=== PATIENT | male | born 1975 | race Caucasian/White ===

== ENCOUNTER 2019-04-11 18:23 | Observation (INO) | payer OTHER ==
[~2019-04-11] VITALS: Ht 188 cm; Wt 90.7 kg
[~2019-04-11 18:23] MED LIST: AMBIEN5 MG PO; CLONAZEPAM1 MG PO; ZOLOFT50 MG PO
--- OUTSIDE RECORDS SUMMARY | 2019-04-11 18:26 | XMS ---
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 EHemanth VISIT COUNT (12 MO.) 1 SHARON Gil TOTAL 1 NOTE: Visits indicate total known visits. ED/UCC VISIT TRACKING (12 MO.) 04/11/2019 18:24 SHARON Sood OR TYPE: Emergency COMPLAINT: - POSSIBLE STROKE INPATIENT VISIT TRACKING (12 MO.) No inpatient visits to display in this time frame [email or web address]
[2019-04-11] MEDS ORDERED: ALPRAZOLAM2 MG PO (18:45)
[2019-04-11] MEDS ORDERED: SEROQUEL100 MG PO (18:45)
[2019-04-11] MEDS ORDERED: VITAMIN D2000 UNIT PO (18:46)
[2019-04-11] MEDS ORDERED: MAGNESIUM500 MG PO (18:47)
[2019-04-11] MEDS ORDERED: K-TAB ER20 MEQ PO (18:47)
[2019-04-11] MEDS ORDERED: ALPHA LIPOIC A200 M1 PO (18:48)
[2019-04-11] MEDS ORDERED: MELATONIN10 M2 PO (23:42)
[2019-04-11] MEDS ORDERED: SEROQUEL50 MG PO (23:43)
--- NOTE | 2019-04-11 23:45 | NUR ---
PT ARRIVED TO THE FLOOR, PT AOX4, APPROPRIATE, PT'S SPEECH CLEAR, ARTICULATE, PT'S STRENGTH SYMMETRICAL, NO DEFICITS, PERRLA, PT'S VSS, PT IS ANXIOUS BUT STATES HE OVERALL FEELS "NORMAL", SLIGHT SPASM NOTED IN PT'S RIGHT THIGH, PT DESCRIBES A VIGOROUS WORKOUT HE DID EARLIER THIS DAY, PT'S CMS INTACT, IV SL, FLUSHES WELL, PT ON TELE 7, IN NSR, HR 60'S, PT ORIENTED TO ROOM, POC UPDATED, EDUCATION PROVIDED, CALL LIGHT WITHIN REACH.
--- NOTE | 2019-04-12 00:30 | NUR ---
PT'S HOME SLEEPING MEDS ORDERED PER PHONE ORDER FROM DR. CRUZ, PER PT'S REQUEST, SEE EMAR. HS MEDS GIVEN, PT RESTING IN BED, ASKING QUESTIONS REGARDING DISEASE PROCESS, EDUCATION PROVIDED REGARDING DISEASE PROCESS, POC, LABS, MEDICATIONS, QUESTIONS ANSWERED, PT DESCRIBES FEELING ANXIOUS, REASSURANCE PROVIDED, PT REMAINS ON TELE 7, HR 61, NO FURTHER NEEDS AT THIS TIME, CALL LIGHT WITHIN REACH.
--- NOTE | 2019-04-12 03:08 | NUR ---
PT RESTING IN BED, EYES CLOSED, BREATHS EVEN, UNLABORED, NO NEEDS AT THIS TIME ON TELE, HR 62 NSR, CALL LIGHT WITHIN REACH.
--- NOTE | 2019-04-12 06:27 | NUR ---
PT RESTING IN BED, PT'S SPEECH REMAINS ARTICULATE, AOX4, APPROPRIATE, NO SENSORY OR MUSCULOSKELETAL DEFECITS, STRENGTH SYMMETRICAL, PERRLA, PT'S VSS, BREAKFAST MENU PROVIDED PER PT'S REQUEST, PT DENIES ANY PAIN, ONLY SLIGHT HEADACHE WHICH HE CLAIMS IS USUAL FOR HIM, PT REMAINS ON TELE, HR 72, NO NEEDS AT THIS TIME, CALL LIGHT WITHIN REACH.
--- NOTE | 2019-04-12 07:20 | NUR ---
Pt resting in semifowlers position in bed alert and oriented, face symmetrical, speech clear and flows easily. Pt reports not having eaten since yesterday and that he is very hungry for breakfast. Pt denies wanting snack at this time. Pt denie sother needs or concerns. Call light and h2o in reach.
--- NOTE | 2019-04-12 08:00 | NUR ---
PATIENT SITTING UP IN CHAIR TAKING BREAKFAST. PATIENT SAID MAYBE LATER HE IS GOING TO TAKE A SHOWER. CALL LIGHT WITHIN REACH. NO OTHER NEEDS AT THIS TIME
--- NOTE | 2019-04-12 08:08 | NUR ---
PT RESTING IN SEMI FOWLERS POSITION IN BED, ALERT AND ORIENTED. PT ASSESSMENT COMPLETED. PT'S SPEECH REMAINS CLEAR, WITH GOOD FLOW. SMILE SYMETRICAL, PERRLA, PT DENIES ANY NUMBNESS, TINGLING BURNING, WEEKNESS OR ANY OTHER SYMPTOMS AT THIS TIME. PT VERY MOTIVATED TO FIND CAUSITIVE FACTORS INVOLVED WITH TIA AND TREATMENT/LIFESTYLE CHANGES. PT EDUCATED AND DEMONSTRATES KNOWLEDGE OF TREATMENT PLAN. NO FURTHER NEEDS/CONCERNS VOICED. CALL LIGHT AND H2O IN REACH. AM MED ADMINISTERED -SEE EMAR.
--- NOTE | 2019-04-12 09:29 | NUR ---
PATIENT USING THE BATHROOM. PATIENT BACKS TO BED. VITAL SIGNS AND I&O DONE. ICE WATER GIVEN, CALL LIGHT WITHIN REACH. NO OTHER NEEDS AT THIS TIME
[2019-04-12] MEDS ORDERED: FISH OIL 1,0001 EAC3 PO (09:31)
--- NOTE | 2019-04-12 10:08 | NUR ---
Jennifer MANTILLA DISCUSSING DISCHARGE/TREATMENT PLAN AT LENGTH WITH PT. LIPITOR ADMINISTERED -SEE EMAR. CALL LIGHT AND H2O IN REACH.
[2019-04-12] MEDS ORDERED: LIPITOR40 MG PO (10:35)
[2019-04-12] MEDS ORDERED: ASPIRIN EC325 MG PO (10:35)
--- NOTE | 2019-04-12 14:26 | EKG ---
[facility] [address] [facility] [place], [place] [address] Signed Normal sinus rhythm Normal ECG No previous ECGs available Confirmed by ROXIE CRUZ DO ([id number]) on 04/12/2019 2:26:34 PM Electronically Signed By: ROXIE CRUZ DO 04/12/19 1426 PATIENT NAME: DEIDRE PEMBERTON BETH Electrocardiogram DATE OF : 71 PHYSICIAN: ROXIE CRUZ DO REPORT #: [id number] REPORT IS CONFIDENTIAL AND NOT TO BE RELEASED WITHOUT AUTHORIZATION
== END 2019-04-12 11:35 | disposition home or self-care (01) ==
LOC: ED 18:23 → MS 18:25
PROVIDERS: ADMIT Student in an Organized Health Care Education/Training Program
DX: G45.9 Transient cerebral ischemic attack, unspecified (principal); G47.00 Insomnia, unspecified; Z87.891 Personal history of nicotine dependence; Z79.899 Other long term (current) drug therapy
CPT/HCPCS: 70450; 70496; 70498; 80053; 80061; 81001; 83036; 83735; 85025; 85610; 85730; 93005; 93010; 93306; 96360; 99285-25; G0378; J7030; Q9967

== ENCOUNTER 2023-07-27 06:58 | Day surgery (SDC) | payer OTHER ==
[2023-07-25 16:32] VITALS: BP 127/98
[~2023-07-27] VITALS: Ht 188 cm; Wt 104.1 kg
[~2023-07-27 06:58] MED LIST changes: +ALPHA LIPOIC A200 M1 PO; +ALPRAZOLAM2 MG PO; +ASPIRIN EC325 MG PO; +FISH OIL 1,0001 EAC3 PO; +K-TAB ER20 MEQ PO; +LIPITOR40 MG PO; +MAGNESIUM500 MG PO; +MELATONIN10 M2 PO; +SEROQUEL100 MG PO; +SEROQUEL50 MG PO; +VITAMIN D2000 UNIT PO; +ZALEPLON5 MG PO
[2023-07-27 07:22] VITALS: BP 115/83
--- NOTE | 2023-07-27 08:03 | NUR ---
DS ROUNDS. 15 MINUTES. PT EXPRESSED NERVOUSNESS. NORMALIZED PATIENT EXPERIENCE. PROVIDED ANXIETY CONTAINMENT. PROVIDED PRAYER. PT EXPRESSED GRATITUDE.
--- NOTE | 2023-07-27 09:11 | NUR ---
07/27/23 0911 Marlyn Reyes 0850- PT ARRIVES TO PACU, LEFT LATERAL POSITION. LR INFUSING TO RH IV, O2 AT 6L PER MASK. ALL MONITORS IN PLACE. ABD SOFT, NON DISTENDED. PT NON REACTIVE TO STIMULUS AT THIS TIME. 0853- PT SLOWLY WAKING, REACTIVE. MOVING EXTREMITIES AROUND, RE ORIENTED TO TIME AND PLACE. ASSURED PT SAFE AND WAKING UP. 0855- PT REQUESTS O2 MASK TO BE REMOVED, O2 SATS 100%. MOVED TO ROOM AIR AT THIS TIME. 0910- PT REMAINS AWAKE, CONVERSING WITH STAFF. NO SIGNS OF DISTRESS. PT ANSWERS ALL QUESTIONS APPROPRIATELY, EVEN ABLE TO TEXT SON TO ASSURE AWAKE.
[2023-07-27 09:40] VITALS: BP 116/90
--- NOTE | 2023-07-27 10:41 | OR ---
[facility] [place] [facility] [address] [place], [place] [address] Signed DATE OF OPERATION: 07/27/2023 SURGEON: Lukas Rose MD PREOPERATIVE DIAGNOSIS: Screening. POSTOPERATIVE DIAGNOSIS: 4 mm polyp, distal hepatic flexure. PROCEDURE: Colonoscopy with hot biopsy. ESTIMATED BLOOD LOSS: None. INDICATIONS: Deidre is a 48-year-old gentleman asked to see me for his initial screening colonoscopy. He has no lower GI complaints. There is no family history of colon cancer or polyps. 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 In the office, I gave Deidre a pamphlet on colonoscopy. We had reviewed the nature of the test. There is risk including, but not limited to gas bloating, crampy abdominal pain, bleeding, perforation requiring surgery, and missed diagnosis. We also reviewed the written instructions for the bowel prep line by line. He also suffers with significant insomnia and anxiety and he has to use alprazolam, clonazepam, and Zaleplon in this regard on a daily basis. He often adds melatonin as well. Consequently, he really needed monitored anesthesia care with propofol infusion today. Actually that worked out very nicely for him. In addition, he has had a TIA in the past few years. He said he has been working hard and lost is a significant amount of weight and he thinks overall he is feeling better. He understands an adult person has to take him home afterwards. He had expressed understanding and wished to proceed. PROCEDURE IN DETAIL: Deidre was taken into our endoscopy suite and placed in the left lateral decubitus position. He was given monitored anesthesia care with propofol infusion per our nurse manager strategy & account. A digital rectal exam was performed and this revealed good sphincter tone with no external hemorrhoids. There were no masses. His prostate is indurated and quite lumpy for someone of his age. He might review that with his primary care provider. After this, the adult colonoscope was then introduced and advanced quite readily into the cecum under direct visualization of camera without difficulty. His Electronically Signed By: LUKAS ROSE MD 07/27/23 1041 PATIENT NAME: DEIDRE PEMBERTON OPERATIVE REPORT DATE OF : 71 REPORT #: [id number] PHYSICIAN: LUKAS ROSE MD PCP: GAURANG LR MD REPORT IS CONFIDENTIAL AND NOT TO BE RELEASED WITHOUT AUTHORIZATION [facility] [place] [facility] [address] [place], [place] [address] Signed prep was quite excellent. We could easily see the appendiceal orifice and ileocecal valve. The scope was then slowly withdrawn. He had one small 4 mm polyp on a fold in the distal hepatic flexure. It was easily biopsied and destroyed completely with the hot biopsy forceps. The rest of the colon was unremarkable. The rectum was unremarkable. Upon retroflexion of scope, we really did not see any additional pathology above the anal canal. After this the gas was suctioned out and colonoscope removed. Deidre tolerated the procedure quite well. RECOMMENDATIONS: Deidre will follow up my office in 7 to 14 days to review his results. He might review his prostate exam with his primary care provider. Lukas Rose MD ALB/MODL /[id number] cc: MD Gaurang Caicedo MD Copies: LUKAS ROSE MD, ROBERT D DMD ~ Electronically Signed By: LUKAS ROSE MD 07/27/23 1041 PATIENT NAME: DEIDRE PEMBERTON OPERATIVE REPORT DATE OF : 71 REPORT #: [id number] PHYSICIAN: LUKAS ROSE MD PCP: GAURANG LR MD REPORT IS CONFIDENTIAL AND NOT TO BE RELEASED WITHOUT AUTHORIZATION
--- NOTE | 2023-08-02 12:06 | PATH ---
[facility] [address] [place], [place] [address] Signed SPECIMEN(S): A DISTAL HEPATIC FLEXURE POLYP SPECIMEN SOURCE: A. DISTAL HEPATIC FLEXURE POLYP CLINICAL HISTORY: Screening. Post-op: Polyp. FINAL PATHOLOGIC DIAGNOSIS: Distal hepatic flexure polyp: - Tubular adenoma (one fragment). JVR:con MICROSCOPIC EXAMINATION: Histologic sections of all submitted blocks are examined by light microscopy. These findings, together with the gross examination, support the pathologic diagnosis. GROSS DESCRIPTION: The specimen, labeled and designated "Jamal, D, colon, distal hepatic flexure polypectomy," is received in formalin and consists of one guthrie soft tissue fragment measuring 0.4 x 0.3 x 0.2 cm, the specimen is submitted entirely in (A1). MMA (under the direct supervision of a pathologist) The Gross Description was prepared using a voice recognition system. The report was reviewed for accuracy; however, sound-alike word errors, addition and/or deletions may occur. If there is any question about this report, please contact Client Services. PERFORMING LABORATORY: Technical component was performed by [facility], [address] [place] [id number] (CLIA# [id number]). Professional interpretation was performed by [facility], [address] [place] [id number] (CLIA#: [id number]). Diagnostician: Sj Duggan MD Pathologist Electronically Signed 08/01/2023 Copies: PATIENT NAME: DEIDRE PEMBERTON PATHOLOGY DATE OF : 71 REPORT #: [id number] PHYSICIAN: [facility] PCP: GAURANG LR MD REPORT IS CONFIDENTIAL AND NOT TO BE RELEASED WITHOUT AUTHORIZATION [address] [address] Signed ~ PATIENT NAME: DEIDRE PEMBERTON PATHOLOGY DATE OF : 71 REPORT #: [id number] PHYSICIAN: [facility] PCP: GAURANG LR MD REPORT IS CONFIDENTIAL AND NOT TO BE RELEASED WITHOUT AUTHORIZATION
== END 2023-07-27 09:43 | disposition home or self-care (01) ==
LOC: DS 06:58 → OPS 06:58 → DS 08:15 → OPS 09:43
PROVIDERS: ATTEND Colon & Rectal Surgery
PROC: 0DBL8ZX Excision of Transverse Colon, Via Natural or Artificial Opening Endoscopic, Diagnostic (ICD-10-PCS; principal; 2023-07-27 08:15)
DX: Z12.11 Encounter for screening for malignant neoplasm of colon (principal); D12.3 Benign neoplasm of transverse colon; E78.6 Lipoprotein deficiency; E55.9 Vitamin D deficiency, unspecified; E78.5 Hyperlipidemia, unspecified; D70.9 Neutropenia, unspecified; Z88.8 Allergy status to other drugs, medicaments and biological substances; Z86.73 Personal history of transient ischemic attack (TIA), and cerebral infarction without residual deficits; Z79.899 Other long term (current) drug therapy
CPT/HCPCS: 00812; J2001; J2704